=== PATIENT | male | born 1990 | race Two or more races ===

== ENCOUNTER 2019-04-08 11:37 | Emergency (ER) | payer OTHER ==
--- NOTE | 2019-04-08 14:15 | CR ---
Clinical history: 28-year-old male injury and pain left shoulder. Interpretation: Homogeneous age/degenerative appropriate bone mineral density. No sign of pathologic skeletal lesion, left shoulder fracture, dislocation or radiopaque loose joint body. No acromioclavicular separation. Normal spacing. Acromion process scapula the head of the humerus. Underlying ribs left hemithorax unremarkable. Left lung apex clear. CONCLUSION: Negative plain film exam left shoulder.
--- NOTE | 2019-04-08 14:18 | EDM.PDOC ---
ED HPI GENERAL MEDICAL PROBLEM - General Chief Complaint: Upper Extremity Injury/Pain Stated Complaint: SHOULDER IN PAIN [id number] Time Seen by Provider: 04/08/19 13:30 Source of Information: Reports: Patient, RN, RN Notes Reviewed History Limitations: Reports: No Limitations - History of Present Illness INITIAL COMMENTS - FREE TEXT/NARRATIVE: Patient presents to ER with complaint of pain in left shoulder. He was doing physical training. When doing a pull up he states he had a pain in the left shoulder, felt a pop in the left shoulder. States very painful to lift left arm , or move. No previous injury to the left shoulder. Rates pain 7/10. Has not taken anything for the pain. Onset: Today Duration: Getting Worse Location: Reports: Upper Extremity, Left Quality: Reports: Ache Severity: Moderate Improves with: Reports: None Worsens with: Reports: None Associated Symptoms: Reports: No Other Symptoms Left Arm Pain Score (Numeric/FACES): 7 - Related Data Allergies Allergy/AdvReac Type Severity Reaction Status Date / Time No Known Allergies Allergy Verified 04/08/19 12:21 Home Meds: Home Meds . [No Known Home Meds] 04/08/19 [History] Past Medical History HEENT History: Reports: None Cardiovascular History: Reports: None Respiratory History: Reports: None Gastrointestinal History: Reports: None Genitourinary History: Reports: None Musculoskeletal History: Reports: None Neurological History: Reports: None Psychiatric History: Reports: None Endocrine/Metabolic History: Reports: None Hematologic History: Reports: None Immunologic History: Reports: None Oncologic (Cancer) History: Reports: None Dermatologic History: Reports: None - Past Surgical History Head Surgeries/Procedures: Reports: None Social & Family History - Tobacco Use Smoking Status *Q: Never Smoker Second Hand Smoke Exposure: No - Caffeine Use Caffeine Use: Reports: Coffee - Recreational Drug Use Recreational Drug Use: No Review of Systems - Review of Systems Review Of Systems: ROS reveals no pertinent complaints other than HPI. ED EXAM, GENERAL - Physical Exam Exam: See Below Exam Limited By: No Limitations General Appearance: Alert, WD/WN, No Apparent Distress Eye Exam: Bilateral Eye: EOMI, Normal Inspection, PERRL Ears: Normal External Exam, Normal Canal, Hearing Grossly Normal, Normal TMs Nose: Normal Inspection, Normal Mucosa, No Blood Throat/Mouth: Normal Inspection, Normal Lips, Normal Teeth, Normal Gums, Normal Oropharynx, Normal Voice, No Airway Compromise Head: Atraumatic, Normocephalic Neck: Normal Inspection, Supple, Non-Tender, Full Range of Motion Respiratory/Chest: No Respiratory Distress, Lungs Clear, Normal Breath Sounds, No Accessory Muscle Use, Chest Non-Tender Cardiovascular: Normal Peripheral Pulses, Regular Rate, Rhythm, No Edema, No Gallop, No JVD, No Murmur, No Rub (Male) Exam: Deferred Rectal (Males) Exam: Deferred Back Exam: Normal Inspection, Full Range of Motion, NT Extremities: Other (right shoulder pain. Tender to touch and decreased range of motion. ) Neurological: Alert, Oriented, CN II-XII Intact, Normal Cognition, Normal Gait, Normal Reflexes, No Motor/Sensory Deficits Psychiatric: Normal Affect, Normal Mood Skin Exam: Warm, Dry, Intact, Normal Color, No Rash Lymphatic: No Adenopathy Course - Vital Signs Last Recorded V/S: Last Vital Signs Temp 97 F 04/08/19 12:16 Pulse 80 04/08/19 12:16 Resp 16 04/08/19 12:16 BP 124/86 04/08/19 12:16 Pulse Ox 97 04/08/19 12:16 - Radiology Interpretation Free Text/Narrative:: Left shoulder xray: No acute findings Negative exam See rad report Departure - Departure Time of Disposition: 14:16 Disposition: Home, Self-Care 01 Condition: Fair Clinical Impression: Sprain of shoulder Qualifiers: Encounter type: initial encounter Shoulder sprain type: unspecified sprain Laterality: left Qualified Code(s): S43.402A - Unspecified sprain of left shoulder joint, initial encounter - Discharge Information *PRESCRIPTION DRUG MONITORING PROGRAM REVIEWED*: No *COPY OF PRESCRIPTION DRUG MONITORING REPORT IN PATIENT MACIE: No Instructions: Shoulder Sprain, How to Use a Sling, [id number], Shoulder Pain , [id number] Referrals: PCP,None [Primary Care Provider] - Forms: ED Department Discharge Additional Instructions: May use sling for comfort Ice the area as tolerated May use Tylenol for pain RX: Ketorolac Do not take ibuprofen while taking Ketorolac Follow up with your primary care facility
== END 2019-04-08 14:25 | disposition home or self-care (01) ==
LOC: DL.ED 11:37
DX: S43.402A Unspecified sprain of left shoulder joint, initial encounter (principal); X50.9XXA Other and unspecified overexertion or strenuous movements or postures, initial encounter
CPT/HCPCS: 73030-LT; 99283